=== PATIENT | female | born 1965 | race American Indian/Alaskan Native ===

== ENCOUNTER 2021-09-03 08:44 | Emergency (ER) | payer SELFPAY ==
[~2021-09-03 08:44] MED LIST: EPINEPHrine 1 MG/10 ML SYRINGE ONE; SODIUM BICARB 8.4% 50 MEQ/50 ML SYRINGE IV ONE
--- NOTE | 2021-09-03 08:57 | Emergency Department Report ---
HPI - General Time Seen by Provider: 09/03/21 08:51 - HPI HPI: 55-year-old -[place] female presents to the emergency department via EMS from home in cardiac arrest. The initial call for EMS was for shortness of breath and was made by the patient herself at about 8:05 AM. EMS says that they arrived around 8:10 AM and found the patient to be having some seizure-like activity and then she went into cardiac arrest. They initiated ACLS protocol with an LMA and bag valve ventilation, chest compressions, and placed a peripheral IV. The patient was initially in PEA but then had episodes of V. fib. She received two different defibrillations of 360 J and went into asys tole. The patient had an Accu-Chek of 90. She received four rounds of epinephrine, one dose of sodium bicarbonate, one dose of calcium, 300 mg of amiodarone, all without ROSC. Patient presents to our emergency department still in cardiac arrest and was placed in room #2. She has a past medical history of seizures and lupus. It does not appear that this patient has been to our emergency department previously. ED Review of Systems ROS: Stated complaint: CARDIAC ARREST Other details as noted in HPI Comment: Unobtainable due to pts medical conditions Physical Exam - Physical Exam Physical Exam: GENERAL: Patient is ill-appearing and unresponsive. HENT: Normocephalic. Atraumatic. EYES: Pupils are fixed and dilated. NECK: Supple. Trachea appears midline. CHEST/LUNGS: There are no spontaneous respirations. HEART/CARDIOVASCULAR: There are no spontaneous heart sounds. ABDOMEN: Abdomen is soft. There is no abdominal distention. SKIN: Skin is cool but dry. NEURO: Unresponsive. Does not withdraw to painful stimuli. Does not follow any commands. MUSCULOSKELETAL: There is no obvious deformity. There is no evidence of acute injury. No palpable femoral or radial pulses. - Procedure Description Procedures done: Procedure: Supervision of ACLS protocol. Time: 12 minutes. Patient received bag valve ventilation, chest compressions, and was placed on the zole monitor. Patient received 2 doses of epinephrine and 1 dose of sodium bicarbonate. With each pulse and rhythm check the patient was pulseless and in asystole. Including the time spent with EMS, this patient had been pulseless and anoxic for greater than 40 minutes. Time of was called at 8:51 AM. ED Medical Decision Making - Medical Decision Making This patient initially had some witnessed seizure-like activity upon EMS arrival and then collapsed and went into cardiac arrest. They initiated ACLS protocol. The patient had an LMA airway and they were giving bag valve ventilation. EMS was doing chest compressions. She received epinephrine x4, sodium bicarbonate, calcium, amiodarone. The patient had some V. fib and she received defibrillation at 360 J. She had a normal Accu-Chek. They were working on this patient for about 30 minutes prior to arrival in our emergency department. The patient was brought into room #2 and placed on a monitor where she appeared in asystole. We continued ACLS protocol with bag valve ventilation, chest compressions. The patient was given 2 more rounds of epinephrine, another dose of sodium bicarbonate. However, by this time, the patient had been pulseless and anoxic for more than 40 minutes. She has no spontaneous heart or breath sounds, her pupils are fixed and dilated. Time of was 8:51 AM. Critical care attestation.: If time is entered above; I have spent that time in minutes in the direct care of this critically ill patient, excluding procedure time. ED Disposition Clinical Impression: Cardiac arrest Acute respiratory failure Qualifiers: Respiratory failure complication: unspecified whether with hypoxia or hypercapnia Qualified Code(s): J96.00 - Acute respiratory failure, unspecified whether with hypoxia or hypercapnia Disposition: 01 HOME / SELF CARE / HOMELESS Is pt being admited?: No
== END 2021-09-03 15:42 | disposition home or self-care (01) ==
LOC: ED 08:44
DX: I46.9 Cardiac arrest, cause unspecified (principal); J96.00 Acute respiratory failure, unspecified whether with hypoxia or hypercapnia
CPT/HCPCS: 92950; 99285; J0171; J3490